=== PATIENT | female | born 1960 | race Hispanic/Latino ===

== ENCOUNTER 2017-07-02 10:57 | Observation (INO) | payer OTHER ==
[2017-06-26 10:57] VITALS: BMI 34.7
[2017-07-02] MEDS ORDERED: Bupivacaine 0.5% Inj(30mL) ONE (12:52)
[2017-07-02] MEDS ORDERED: Lidocaine 2% Inj (20ml) ONE (12:52)
[2017-07-02] MEDS ORDERED: Sevoflurane - Inhalation Anesthetic Liq (250 ml) ONE (15:28)
[2017-07-02] MEDS ORDERED: Midazolam 2 MG/2 ML VIAL ONE (16:10)
[2017-07-02] MEDS ORDERED: Lidocaine 4% (Laryng-O-Jet) Kit MM ONE (16:10)
[2017-07-02] MEDS ORDERED: Propofol 10 mg/ml Inj (20 ML) ONE (16:10)
[2017-07-02] MEDS ORDERED: Lidocaine 1% 5ml Abboject IV ONE (16:11)
[2017-07-02] MEDS ORDERED: Rocuronium 10 mg/ml (5 ml) ONE (16:11)
[2017-07-02] MEDS ORDERED: Neostigmine 1:1000 (1 mg/ml) Inj ONE (16:14)
[2017-07-02] MEDS ORDERED: Succinylcholine 200 mg/10 ml Inj IV ONE (16:14)
[2017-07-02] MEDS ORDERED: Lactated Ringer's 1,000 ML IV ONE ×5 (16:24→20:25)
--- NOTE | 2017-07-02 16:41 | CP.PCM.PN ---
Subjective - Date & Time of Evaluation Date of Evaluation: 07/02/17 Time of Evaluation: 16:40 - Subjective Subjective: [place] [employer] patient report reviewed, last CDS 12/14 from [facility]. Patient counseled on the risks of addiction, physical or psychological dependence, and overdose associated with opioid drugs and the danger of taking opioid drugs with alcohol and other central nervous system depressants, and cautioned patient on storage and disposal. Objective - Vital Signs/Intake and Output Vital Signs (last 24 hours): Temp Pulse Resp BP Pulse Ox 98.6 F 104 H 20 131/78 95 07/02/17 11:46 07/02/17 11:51 07/02/17 11:46 07/02/17 11:46 07/02/17 11:46
[2017-07-02] MEDS ORDERED: ePHEDrine 50 mg/ml Inj ONE (17:12)
[2017-07-02] MEDS ORDERED: Morphine 4 MG/ML VIAL IV ONE (17:50)
[2017-07-02] MEDS ORDERED: Morphine 4 MG/ML VIAL IVP ONE (17:50)
--- NOTE | 2017-07-02 17:52 | CP.SDSHP ---
Same Day Surgery H & P - Allergies Allergies: Allergies No Known Allergies Allergy (Verified 07/02/17 11:59) - Current Medications Current Medications: Home Medication List Medication Instructions Recorded Confirmed Type oxyCODONE/Acetaminophen [Percocet 1 ea PO Q4H PRN #30 tab 07/02/17 Rx 5/325 mg Tab] - Physical Exam Vital Signs: Vital Signs 07/02/17 07/02/17 11:46 11:51 Temperature 98.6 F Pulse Rate 104 H 104 H Respiratory 20 Rate Blood Pressure 131/78 O2 Sat by Pulse 95 Oximetry Short Stay Discharge - Short Stay Discharge Admitting Diagnosis/Reason for Visit: K82.4 Disposition: HOME/ ROUTINE Medications: oxyCODONE/Acetaminophen [Percocet 5/325 mg Tab] 1 ea PO Q4H PRN #30 tab PRN Reason: Pain, Moderate (4-7) Referrals: Jarred Presley MD [Primary Care Provider] - Additional Instructions (Diet, Activity): No heavy lifting 3 weeks, you can shower tomorrow, if you develop any fevers chills chest pain, new or worsening symptoms please call Dr. Lowe office and/ or go to the emergency department. If in pain firt try over the counter pain medication such as motrin. If that did not work take pain medication as needed per direction on the bottle.
--- NOTE | 2017-07-02 17:54 | PCM.SURG1 ---
Surgeon's Initial Post Op Note - Surgeon's Notes Surgeon: Dr. Lowe Collections Specialist: Dr. Garcia PGY1, Dr. Reaves Type of Anesthesia: General Endo Pre-Operative Diagnosis: Gallstones and Gallbladder Polyps Operative Findings: See operative dictation Post-Operative Diagnosis: Gall bladder stones and polyps Operation Performed: Robotic assited cholecystectomy Specimen/Specimens Removed: Gallbladder with polyps Estimated Blood Loss: EBL {In ML}: 10 Blood Products Given: N/A Drains Used: No Drains Post-Op Condition: Good Date of Surgery/Procedure: 07/02/17 Time of Surgery/Procedure: 17:54
[2017-07-02] MEDS ORDERED: Morphine 4 MG/ML VIAL IVP PRN (17:57)
[2017-07-02] MEDS ORDERED: Morphine 4 MG/ML VIAL ONE (17:58)
[2017-07-02] MEDS ORDERED: Lactated Ringer's 1,000 ML IV SCH ×4 (18:00→19:45)
[2017-07-02] MEDS ORDERED: Oxycodone/Acetaminophen 5/325 mg Tab PO PRN (18:05)
[2017-07-02] MEDS ORDERED: IBUPROFEN PO PRN (18:09)
[2017-07-02] MEDS ORDERED: FAMOTIDINE PO PRN (18:09)
[2017-07-02] MEDS ORDERED: Ergocalciferol 50,000 Intl Units Cap PO SCH (18:15)
[2017-07-02 19:18] LABS: HEMOGLOBIN 12.6 g/dL (12.0-16.0); MEAN CELL VOLUME 83.4 fl (81.0-99.0); MEAN CORPUSCULAR HEMOGLOBIN 28.3 pg (27.0-31.0); MEAN CORPUSCULAR HGB CONC 33.9 g/dL (33.0-37.0); RBC 4.47 Mil/uL (3.80-5.20); WHITE BLOOD COUNT 9.3 K/uL (4.8-10.8)
[2017-07-03] MEDS ORDERED: Sodium Chloride 0.9% 1,000 ML IV SCH (00:45)
[2017-07-03 06:25] VITALS: PULSE 88
[2017-07-03 07:52] VITALS: BP 112/61; RESP 16; TEMP 99.2; O2SAT 97
--- NOTE | 2017-07-15 17:03 | PCM.OP ---
Operative Report - Operative Report Date of Surgery/Procedure: 06/01/17 Time of Surgery/Procedure: 15:00 Surgeon: Dr. Primitivo Lowe Orthodontic Band Maker: Dr. Fareed Reaves Anesthesia/Sedation: general/Dr. Jackson Pre-Operative Diagnosis: acute/chronic cholecystitis and gallbladder polyps Post-Operative Diagnosis: same Indication for Surgery: abdominal pain Operative Findings: as above Procedure/Operation Description: 1-Robotic cholecystectomy. Brief History: This 56 year old woman had RUQ abdominal pain and the findings of cholesterolosis, polyps and cholecystitis. Decription of the Procedure: The patient was taken to the opeerating room and after induction of endotracheal anesthesia she was prepped and drapped in the usual sterile manner. An infraumbilical incision was made with a 15 blade and the peritoneum was entered in an open fashion. An 8 mm trocar was placed and the abdomen was insulflated to 15mmHg. Three other trocars were placed under direct videoscopic control in the usual manner. The gallbldder was then retracted cephalad and lateral with dissection of the cystic structures to the level of the so called critical view. The cystic structures were ligated with clips and transected. The gallbldder was removed from the gallblder plate with electrocautery and placed in an endobag. The area was irigated, aspirated, inspected and hemostsis was deemed adequate. The pneumoperitomneum was released and the gallbldder was removed through the umbilical incision. The specimen was sent separately to pathology. The umbilical incison was closed with 2-0 PDS and the skin was closed with 4-0 monocryl. A clean dressing was applied. The patient was awakened , extubated and brought to the recovery room in stable condition. Estimated Blood Loss: 5 cc Complications: none Specimen: gallbladder Discharge & Condition: stable
== END 2017-07-03 13:48 | disposition home or self-care (01) ==
LOC: H.OPSURG 10:57 → H.ERHOLD 18:08 → H.PEDS 20:39
PROVIDERS: ADMIT Surgery; ATTEND Surgery
DX: K80.10 Calculus of gallbladder with chronic cholecystitis without obstruction (principal)
CPT/HCPCS: 36415; 47562; 82948; 85027; 86850; 86900; 88304; 96360; G0378; J0330; J0690; J2250; J2270; J2704; J2710; J2765; J3010; J7040; J7120